=== PATIENT | male | born 1985 | race Caucasian/White ===

== ENCOUNTER 2017-07-16 18:45 | Emergency (ER) | payer BC ==
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
[2017-07-16] MEDS ORDERED: Cyclobenzaprine 10 MG PO ONE (20:49)
[2017-07-16 20:56] VITALS: BP 168/100; PULSE 77; O2SAT 97
[2017-07-16] MEDS ORDERED: Cyclobenzaprine 10 MG ONE (20:58)
[2017-07-16] MEDS ORDERED: TORAdol 30 mg Injection IM ONE (21:03)
[2017-07-16] MEDS ORDERED: TORAdol 30 mg Injection ONE (21:05)
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
== END 2017-07-16 21:38 | disposition home or self-care (01) ==
LOC: ED 18:45
DX: S13.4XXA Sprain of ligaments of cervical spine, initial encounter (principal); S29.012A Strain of muscle and tendon of back wall of thorax, initial encounter; V89.2XXA Person injured in unspecified motor-vehicle accident, traffic, initial encounter; M54.2 Cervicalgia; M54.6 Pain in thoracic spine
CPT/HCPCS: 71010; 72125; 72128; 96372; 99284; J1885; A9270-GY

== ENCOUNTER 2018-02-25 12:14 | Emergency (ER) | payer SELFPAY ==
[2018-02-25] MEDS ORDERED: BACIGUENT PACKET TP ONE (12:40)
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
[2018-02-25] MEDS ORDERED: XYLOCAINE 1% HCL 20 ML MDV IJ ONE (12:59)
[2018-02-25] MEDS ORDERED: XYLOCAINE 1% HCL 20 ML MDV ONE (13:01)
[2018-02-25] MEDS ORDERED: BACIGUENT PACKET ONE (13:01)
[2018-02-25 13:41] VITALS: BP 140/75; PULSE 60; O2SAT 98
== END 2018-02-25 13:43 | disposition home or self-care (01) ==
LOC: ED 12:14
PROC: 0HQGXZZ Repair Left Hand Skin, External Approach (ICD-10-PCS; principal; 2018-02-25)
DX: S61.412A Laceration without foreign body of left hand, initial encounter (principal); W26.0XXA Contact with knife, initial encounter
CPT/HCPCS: 12001; 96372; 99284; A9270-GY

== ENCOUNTER 2018-04-12 06:05 | Emergency (ER) | payer SELFPAY ==
[2018-04-12 06:10] VITALS: O2SAT 99
[2018-04-12] MEDS ORDERED: Erythromycin 1 GM ONE (06:27)
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
[2018-04-12] MEDS ORDERED: Erythromycin 3.5 GM OPHTH. OP ONE (06:39)
[2018-04-12] MEDS ORDERED: ZOFRAN ODT 4 MG ONE (06:51)
[2018-04-12] MEDS ORDERED: ZOFRAN ODT 4 MG PO ONE (06:52)
[2018-04-12 07:08] VITALS: BP 132/77; PULSE 70
== END 2018-04-12 07:25 | disposition home or self-care (01) ==
LOC: ED 06:05
DX: S05.02XA Injury of conjunctiva and corneal abrasion without foreign body, left eye, initial encounter (principal); S91.111A Laceration without foreign body of right great toe without damage to nail, initial encounter; W45.8XXA Other foreign body or object entering through skin, initial encounter; Y93.02 Activity, running; Y92.096 Garden or yard of other non-institutional residence as the place of occurrence of the external cause; Z72.89 Other problems related to lifestyle; F15.90 Other stimulant use, unspecified, uncomplicated
CPT/HCPCS: 99283; Q0162; A9270-GY

== ENCOUNTER 2020-12-10 14:33 | Emergency (ER) | payer MEDICAID ==
[2020-12-10] MEDS ORDERED: Zofran 4 MG/2 ML VIAL IV ONE (14:49)
[2020-12-10] MEDS ORDERED: Sodium Chloride 0.9% 1000 ML 1,000 ML IV STA (14:49)
--- NOTE | 2020-12-10 14:49 | ERPHSYRPT ---
- History of Present Illness Time Seen by Provider: 12/10/20 14:40 Source: patient, EMS Patient Subjective Stated Complaint: Pt has been going to the Methadone clinic for 3 years and got placed in [facility] on Thursday and is now having body cramps, nausea, and tremors Triage Nursing Assessment: Pt brought to the ER via EMS from the local [facility], pt states that he has been having "convulsions" for the past 18 hours, denies pain but states his whole body has been cramping, abdomen tender with palpatation to all quadrants, pulses normal, skin n/w/d, doesn't appear to be in any distress Physician History: This is a 34-year-old white male resident of local [facility] who has been receiving methadone in a methadone clinic. His last dose was Thursday prior to this evaluation. He is receiving Librium, Ativan and loperamide to treat his symptoms in the [facility]. He is have any worsening symptoms of nausea vomiting body cramps that are generalized. He feels as though he is withdrawing. Patient was brought into the emergency department by EMS. Severity: mild Associated Symptoms: nausea, vomiting, abdominal pain, other (Body aches and spasming.), No shortness of breath, No chest pain Allergies/Adverse Reactions: No Known Drug Allergies Allergy (Verified 12/10/20 14:44) Home Medications: Methadone HCl 60 mg PO DAILY 12/10/20 [History] Hx Tetanus, Diphtheria Vaccination/Date Given: Yes (2016) Hx Influenza Vaccination/Date Given: No Hx Pneumococcal Vaccination/Date Given: No Travel Risk - International Travel Have you traveled outside of the country in past 3 weeks: No - Coronavirus Screening Are you exhibiting any of the following symptoms?: No Close contact with a COVID-19 positive Pt in past 14-21 Days: No - Vaccine Status Have you recieved a Covid-19 vaccination: No - Review of Systems Constitutional: No Symptoms Eyes: No Symptoms Ears, Nose, & Throat: No Symptoms Respiratory: No Symptoms Cardiac: No Symptoms Abdominal/Gastrointestinal: Abdominal Pain (Damping), Nausea, Vomiting, Diarrhea Genitourinary Symptoms: No Symptoms Musculoskeletal: Myalgias Skin: No Symptoms Neurological: No Symptoms Psychological: No Symptoms Endocrine: No Symptoms Hematologic/Lymphatic: No Symptoms Immunological/Allergic: No Symptoms All Other Systems: Reviewed and Negative - Past Medical History Pertinent Past Medical History: No Neurological History: No Pertinent History ENT History: No Pertinent History Cardiac History: No Pertinent History Respiratory History: No Pertinent History Endocrine Medical History: No Pertinent History Musculoskeletal History: No Pertinent History GI Medical History: No Pertinent History History: No Pertinent History Psycho-Social History: No Pertinent History Male Reproductive Disorders: No Pertinent History Other Medical History: hx illicit opioid abuse - Past Surgical History Past Surgical History: Yes Neuro Surgical History: No Pertinent History Cardiac: No Pertinent History Respiratory: No Pertinent History Gastrointestinal: No Pertinent History Genitourinary: No Pertinent History Musculoskeletal: Orthopedic Surgery Male Surgical History: No Pertinent History Other Surgical History: FX: pelvis, hip and right arm - Social History Smoking Status: Current every day smoker How long have you smoked: 8 years Exposure to second hand smoke: Yes Drug Use: narcotics Patient Lives Alone: No - Nursing Vital Signs Nursing Vital Signs: Initial Vital Signs Temperature 98.4 F 12/10/20 14:35 Pulse Rate 83 12/10/20 14:35 Respiratory Rate 19 12/10/20 14:35 Blood Pressure 158/96 12/10/20 14:35 O2 Sat by Pulse Oximetry 100 12/10/20 14:35 Pain Scale Pain Intensity 2 - Physical Exam General Appearance: mild distress, alert, anxiety Eye Exam: PERRL/EOMI, eyes nml inspection Ears, Nose, Throat Exam: normal ENT inspection, moist mucous membranes Neck Exam: normal inspection, non-tender, supple, full range of motion Respiratory Exam: normal breath sounds, lungs clear, airway intact, No chest tenderness, No respiratory distress Cardiovascular Exam: regular rate/rhythm, normal heart sounds, normal peripheral pulses Gastrointestinal/Abdomen Exam: soft, normal bowel sounds, No tenderness, No guarding Rectal Exam: not done Back Exam: normal inspection, normal range of motion, No CVA tenderness, No vertebral tenderness Extremity Exam: normal inspection, normal range of motion, pelvis stable Neurologic Exam: alert, oriented x 3, cooperative, physician extender II-XII nml as tested, normal mood/affect, nml cerebellar function, nml station & gait, sensation nml Skin Exam: normal color, warm, dry Lymphatic Exam: No adenopathy SpO2 Interpretation: normal SpO2: 100 O2 Delivery: Room Air - Course Nursing assessment & vital signs reviewed: Yes Ordered Tests: Active Orders 24 hr Category Date Time Status Clean Catch Urine Specimen STAT Care 12/10/20 14:49 Active IV Insertion STAT Care 12/10/20 14:49 Active AMYLASE Stat Lab 12/10/20 15:05 Completed CBC W DIFF Stat Lab 12/10/20 15:05 Completed CMP Stat Lab 12/10/20 15:05 Completed LIPASE Stat Lab 12/10/20 15:05 Completed UA W/RFX UR CULTURE Stat Lab 12/10/20 16:28 Completed Urine Triage Profile Stat Lab 12/10/20 16:28 Completed Medication Summary Discontinued Medications Generic Name Dose Route Start Last Admin Trade Name Elpidio PRN Reason Stop Dose Admin Sodium Chloride 1,000 mls @ 999 mls/hr 12/10/20 14:49 12/10/20 16:18 Sodium Chloride 0.9% 1000 Ml IV 12/10/20 15:49 Infused .Q1H1M STA Infusion Sodium Chloride Confirm 12/10/20 15:06 Sodium Chloride 0.9% 1000 Ml Administered 12/10/20 15:07 Dose 1,000 mls @ ud .ROUTE .STK-MED ONE Lorazepam 1 mg 12/10/20 14:50 12/10/20 15:09 Ativan 2 Mg/1 Ml Vial IV 12/10/20 14:51 1 mg STAT ONE Administration Lorazepam Confirm 12/10/20 15:06 Ativan 2 Mg/1 Ml Vial Administered 12/10/20 15:07 Dose 2 mg .ROUTE .STK-MED ONE Methadone HCl 20 mg 12/10/20 14:50 12/10/20 15:09 Dolophine 10mg Tablet PO 12/10/20 14:51 20 mg STAT ONE Administration Ondansetron HCl 4 mg 12/10/20 14:49 12/10/20 15:09 Zofran 4 Mg/2 Ml Vial IV 12/10/20 14:50 4 mg STAT ONE Administration Ondansetron HCl Confirm 12/10/20 15:05 Zofran 4 Mg/2 Ml Vial Administered 12/10/20 15:06 Dose 4 mg .ROUTE .STK-MED ONE Lab/Rad Data: Laboratory Result Diagrams 12/10/20 15:05 12/10/20 15:05 Laboratory Results 12/10/20 12/10/20 12/10/20 Range/Units 16:28 16:28 15:05 WBC (4.0-10.5) K/mm3 RBC (4.1-5.6) M/mm3 Hgb (12.5-18.0) gm/dl Hct (42-50) % MCV (78-100) fl MCH (26-32) pg MCHC (32-36) g/dl RDW (11.5-14.0) % Plt Count (150-450) K/mm3 MPV (7.5-11.0) fl Gran % (36.0-66.0) % Eos # (Auto) (0-0.5) Absolute Lymphs (auto) (1.0-4.6) Absolute Monos (auto) (0.0-1.3) Lymphocytes % (24.0-44.0) % Monocytes % (0.0-12.0) % Eosinophils % (0.00-5.0) % Basophils % (0.0-0.4) % Absolute Granulocytes (1.4-6.9) Basophils # (0-0.4) Sodium 141 (137-145) mmol/L Potassium 4.5 (3.5-5.1) mmol/L Chloride 103 (98-107) mmol/L Carbon Dioxide 29 (22-30) mmol/L Anion Gap 13.5 (5-15) MEQ/L BUN 13 (9-20) mg/dL Creatinine 0.91 (0.66-1.25) mg/dL Estimated GFR > 60.0 ML/MIN Glucose 109 H (74-106) mg/dL Calcium 9.6 (8.4-10.2) mg/dL Total Bilirubin 0.50 (0.2-1.3) mg/dL AST 54 (17-59) U/L ALT 86 H (0-50) U/L Alkaline Phosphatase 51 (38-126) U/L Serum Total Protein 8.4 H (6.3-8.2) g/dL Albumin 4.8 (3.5-5.0) g/dL Amylase 47 (30-110) U/L Lipase 29 (23-300) U/L Urine Color YELLOW (YELLOW) Urine Appearance CLEAR (CLEAR) Urine pH 8.0 (5-6) Ur Specific [place] 1.020 (1.005-1.025) Urine Protein 100 (Negative) Urine Ketones NEGATIVE (NEGATIVE) Urine Blood SMALL (0-5) Abhishek/ul Urine Nitrite NEGATIVE (NEGATIVE) Urine Bilirubin NEGATIVE (NEGATIVE) Urine Urobilinogen 4 (0-1) mg/dL Ur Leukocyte Esterase TRACE (NEGATIVE) Urine WBC (Auto) 0-2 (0-5) /HPF Urine RBC (Auto) NONE (0-2) /HPF U Epithel Cells (Auto) RARE (FEW) /HPF Urine Bacteria (Auto) NONE (NEGATIVE) /HPF Urine Culture Reflexed NO (NO) Urine Glucose NEGATIVE (NEGATIVE) mg/dL Urine Opiates Level NEGATIVE (NEGATIVE) Ur Methadone POSITIVE (NEGATIVE) Urine Barbiturates NEGATIVE (NEGATIVE) Ur Phencyclidine (PCP) NEGATIVE (NEGATIVE) Urine Amphetamine POSITIVE (NEGATIVE) U Benzodiazepine Level POSITIVE (NEGATIVE) Urine Cocaine NEGATIVE (NEGATIVE) Urine Marijuana (THC) NEGATIVE (NEGATIVE) 12/10/20 Range/Units 15:05 WBC 6.2 (4.0-10.5) K/mm3 RBC 5.48 (4.1-5.6) M/mm3 Hgb 16.3 (12.5-18.0) gm/dl Hct 49.7 (42-50) % MCV 90.7 (78-100) fl MCH 29.7 (26-32) pg MCHC 32.8 (32-36) g/dl RDW 13.5 (11.5-14.0) % Plt Count 263 (150-450) K/mm3 MPV 11.2 H (7.5-11.0) fl Gran % 63.0 (36.0-66.0) % Eos # (Auto) 0.12 (0-0.5) Absolute Lymphs (auto) 1.68 (1.0-4.6) Absolute Monos (auto) 0.48 (0.0-1.3) Lymphocytes % 26.9 (24.0-44.0) % Monocytes % 7.7 (0.0-12.0) % Eosinophils % 1.9 (0.00-5.0) % Basophils % 0.5 (0.0-0.4) % Absolute Granulocytes 3.93 (1.4-6.9) Basophils # 0.03 (0-0.4) Sodium (137-145) mmol/L Potassium (3.5-5.1) mmol/L Chloride (98-107) mmol/L Carbon Dioxide (22-30) mmol/L Anion Gap (5-15) MEQ/L BUN (9-20) mg/dL Creatinine (0.66-1.25) mg/dL Estimated GFR ML/MIN Glucose (74-106) mg/dL Calcium (8.4-10.2) mg/dL Total Bilirubin (0.2-1.3) mg/dL AST (17-59) U/L ALT (0-50) U/L Alkaline Phosphatase (38-126) U/L Serum Total Protein (6.3-8.2) g/dL Albumin (3.5-5.0) g/dL Amylase (30-110) U/L Lipase (23-300) U/L Urine Color (YELLOW) Urine Appearance (CLEAR) Urine pH (5-6) Ur Specific [place] (1.005-1.025) Urine Protein (Negative) Urine Ketones (NEGATIVE) Urine Blood (0-5) Abhishek/ul Urine Nitrite (NEGATIVE) Urine Bilirubin (NEGATIVE) Urine Urobilinogen (0-1) mg/dL Ur Leukocyte Esterase (NEGATIVE) Urine WBC (Auto) (0-5) /HPF Urine RBC (Auto) (0-2) /HPF U Epithel Cells (Auto) (FEW) /HPF Urine Bacteria (Auto) (NEGATIVE) /HPF Urine Culture Reflexed (NO) Urine Glucose (NEGATIVE) mg/dL Urine Opiates Level (NEGATIVE) Ur Methadone (NEGATIVE) Urine Barbiturates (NEGATIVE) Ur Phencyclidine (PCP) (NEGATIVE) Urine Amphetamine (NEGATIVE) U Benzodiazepine Level (NEGATIVE) Urine Cocaine (NEGATIVE) Urine Marijuana (THC) (NEGATIVE) - Progress Progress: improved, re-examined Progress Note: 12/10/20 17:12 Patient states he is feeling much better. I did contact a provider of methadone clinic (not a physician) who has been treating this patient with a combination of loperamide for diarrhea, lorazepam for anxiety and Librium. This treatment in the [facility] has not been completely effective. The patient may be having methadone withdrawal since his methadone was abruptly stopped when he was admitted into the [facility]. My plan is to provide the patient with intravenous fluids, check electrolytes and kidney function as well as urinalysis.. We will also obtain a urine triage. We will provide the patient with a single dose of methadone. Patient will then be transferred back to [facility] to continue the treatment plan of loperamide, lorazepam and Librium. Counseled pt/family regarding: lab results, diagnosis, need for follow-up - Departure Departure Disposition: [facility] Clinical Impression: Drug withdrawal Condition: Stable Critical Care Time: No Referrals: [facility] [Primary Care Provider] - Additional Instructions: Follow the treatment plan at the [facility].
[2020-12-10] MEDS ORDERED: DOLOPHINE 10MG Tablet PO ONE (14:50)
[2020-12-10] MEDS ORDERED: Ativan 2 MG/1 ML VIAL IV ONE (14:50)
[2020-12-10] MEDS ORDERED: Zofran 4 MG/2 ML VIAL ONE (15:05)
[2020-12-10] MEDS ORDERED: Ativan 2 MG/1 ML VIAL ONE (15:06)
[2020-12-10] MEDS ORDERED: Sodium Chloride 0.9% 1000 ML 1,000 ML ONE (15:06)
[2020-12-10 15:18] LABS: Absolute Neutrophil Ct (ANC) 3.93 (1.4-6.9); BASOPHIL % 0.5 % (0.0-0.4); Basophil (Absolute #) 0.03 (0-0.4); Eosinophil % 1.9 % (0.00-5.0); Eosinophil (Absolute #) 0.12 (0-0.5); Hematocrit 49.7 % (42-50); Hemoglobin 16.3 gm/dl (12.5-18.0); Lymphocyte (Absolute #) 1.68 (1.0-4.6); Lymphocytes % 26.9 % (24.0-44.0); Mean Cell Volume 90.7 fl (78-100); Mean Corpuscular Hemoglobin 29.7 pg (26-32); Mean Corpuscular Hgb Concent. 32.8 g/dl (32-36); Mean Platelet Volume 11.2 fl (7.5-11.0); Monocyte (Absolute #) 0.48 (0.0-1.3); Monocytes % 7.7 % (0.0-12.0); Platelet Count 263 K/mm3 (150-450); Red Blood Count 5.48 M/mm3 (4.1-5.6); Red Cell Distribution Width 13.5 % (11.5-14.0); White Blood Count 6.2 K/mm3 (4.0-10.5)
[2020-12-10 15:46] LABS: ALBUMIN 4.8 g/dL (3.5-5.0); ALKALINE PHOSPHATASE 51 U/L (38-126); AMYLASE 47 U/L (30-110); ANION GAP 13.5 MEQ/L (5-15); BLOOD UREA NITROGEN 13 mg/dL (9-20); CHLORIDE 103 mmol/L (98-107); Calcium 9.6 mg/dL (8.4-10.2); Carbon Dioxide 29 mmol/L (22-30); Creatinine 1 0.91 mg/dL (0.66-1.25); EST GLOMERULAR FILTRATION RATE > 60.0 ML/MIN; Glucose 109 mg/dL (74-106); LIPASE 29 U/L (23-300); Potassium 4.5 mmol/L (3.5-5.1); SGOT/AST 54 U/L (17-59); SGPT/ALT 86 U/L (0-50); SODIUM 141 mmol/L (137-145); Total Protein 8.4 g/dL (6.3-8.2)
[2020-12-10 17:01] LABS: Barbiturate,Urine NEGATIVE (NEGATIVE); Benzodiazepine,Urine POSITIVE (NEGATIVE); Cocaine,Urine NEGATIVE (NEGATIVE); Methadone,Urine POSITIVE (NEGATIVE); Opiate,Urine NEGATIVE (NEGATIVE); PCP,Urine NEGATIVE (NEGATIVE); THC,Urine NEGATIVE (NEGATIVE)
[2020-12-10 17:31] LABS: Amphetamine,Urine POSITIVE (NEGATIVE)
[2020-12-10 17:50] LABS: Appearance CLEAR (CLEAR); Bilirubin NEGATIVE (NEGATIVE); Blood SMALL Ery/ul (0-5); Epithelial Cells RARE /HPF (FEW); Glucose NEGATIVE (NEGATIVE); Ketones NEGATIVE (NEGATIVE); Leukocyte Esterase TRACE (NEGATIVE); Nitrite NEGATIVE (NEGATIVE); Protein,Urine Dip 100 (Negative); Urobilinogen 4 mg/dL (0-1); WBC 0-2 /HPF (0-5)
[2020-12-10 18:13] VITALS: BP 171/81; PULSE 76; O2SAT 97
== END 2020-12-10 18:04 | disposition home or self-care (01) ==
LOC: ED 14:33
DX: F19.239 Other psychoactive substance dependence with withdrawal, unspecified (principal)
CPT/HCPCS: 36000; 36415; 80053; 80307; 81001; 82150; 83690; 85025; 96360; 96374; 96375; 99284; J2060; J2405; A9270-GY

== ENCOUNTER 2023-12-22 18:51 | Emergency (ER) | payer MEDICAID, OTHER ==
[2023-12-22 19:04] VITALS: BP 139/83; PULSE 101; TEMP 98.3; O2SAT 97
[2023-12-22] MEDS ORDERED: BACIGUENT PACKET ONE (19:18)
[2023-12-22] MEDS ORDERED: XYLOCAINE 1% HCL 20 ML MDV ONE ×2 (19:18→19:26)
[2023-12-22] MEDS: XYLOCAINE 1% HCL 20 ML MDV IJ ONE (19:24)
--- NOTE | 2023-12-22 19:24 | ERPHSYRPT ---
- History of Present Illness Time Seen by Provider: 12/22/23 19:10 Source: patient Exam Limitations: no limitations Patient Subjective Stated Complaint: pt cut his left dorsal lateral wrist with a needle grinder Triage Nursing Assessment: Pt brought to the ER by his girlfriend, tachycardic, rates pain as 5/10 but declines all pain meds, two lacerations next to each other on the dorsal lateral wrist measuring 3x1 and 3x.2, bleeding controlled, pulses normal, cap refill normal Physician History: 37-year-old male presents to our ED for evaluation and treatment of laceration to the left lateral wrist just superficial to the radial artery. Patient was using a saw when he injured himself. Injury occurred is prior to arrival. Tetanus up-to-date. Last tetanus was 4 years ago. Pain localized to the area of involvement. Patient declined pain medication. Patient advised that he has a history of hepatitis C. Symptoms are mild to moderate in intensity. No specific worsening improving factors. Patient voices no other complaints or concerns at this time. Portions of this note were created with voice recognition technology. There may be grammatical, spelling, punctuation or sound alike errors Timing/Duration: today Severity: moderate Modifying Factors: Improves With: nothing Associated Symptoms: denies symptoms Allergies/Adverse Reactions: No Known Drug Allergies Allergy (Verified 12/22/23 19:04) Home Medications: Buprenorphine HCl/Naloxone HCl [Buprenorphine-Nalox 8-2 mg Tab] 1 tab SL BID 12/22/23 [History] Hx Tetanus, Diphtheria Vaccination/Date Given: Yes (2016) Hx Influenza Vaccination/Date Given: No Hx Pneumococcal Vaccination/Date Given: No Travel Risk - International Travel Have you traveled outside of the country in past 3 weeks: No - Emerging Infectious Disease Are you exhibiting symptoms associated with any current EIDs: No - Review of Systems Constitutional: No Symptoms, No Fever, No Chills Eyes: No Symptoms Ears, Nose, & Throat: No Symptoms Respiratory: No Symptoms, No Cough, No Dyspnea Cardiac: No Symptoms, No Chest Pain, No Edema, No Syncope Abdominal/Gastrointestinal: No Symptoms, No Abdominal Pain, No Nausea, No Vomiting, No Diarrhea Genitourinary Symptoms: No Symptoms, No Dysuria Musculoskeletal: No Symptoms, No Back Pain, No Neck Pain Skin: No Symptoms, No Rash Neurological: No Symptoms, No Dizziness, No Focal Weakness, No Sensory Changes Psychological: No Symptoms Endocrine: No Symptoms Hematologic/Lymphatic: No Symptoms Immunological/Allergic: No Symptoms All Other Systems: Reviewed and Negative - Past Medical History Pertinent Past Medical History: Yes Neurological History: No Pertinent History ENT History: No Pertinent History Cardiac History: No Pertinent History Respiratory History: No Pertinent History Endocrine Medical History: No Pertinent History Musculoskeletal History: No Pertinent History GI Medical History: No Pertinent History History: No Pertinent History Psycho-Social History: No Pertinent History Male Reproductive Disorders: No Pertinent History Other Medical History: hx illicit opioid abuse - Past Surgical History Past Surgical History: Yes Neuro Surgical History: No Pertinent History Cardiac: No Pertinent History Respiratory: No Pertinent History Gastrointestinal: No Pertinent History Genitourinary: No Pertinent History Musculoskeletal: Orthopedic Surgery Male Surgical History: No Pertinent History Other Surgical History: FX: pelvis, hip and right arm - Social History Smoking Status: Current every day smoker How long have you smoked: 8 years Exposure to second hand smoke: Yes Drug Use: narcotics Patient Lives Alone: No - Nursing Vital Signs Nursing Vital Signs: Initial Vital Signs Temperature 98.3 F 12/22/23 18:55 Pulse Rate 101 H 12/22/23 18:55 Blood Pressure 139/83 12/22/23 18:55 O2 Sat by Pulse Oximetry 97 12/22/23 18:55 Pain Scale Pain Intensity 5 - Physical Exam General Appearance: no apparent distress, alert Eye Exam: PERRL/EOMI, eyes nml inspection Ears, Nose, Throat Exam: normal ENT inspection, TMs normal, pharynx normal, moist mucous membranes Neck Exam: normal inspection, non-tender, supple, full range of motion Respiratory Exam: normal breath sounds, lungs clear, airway intact, No respiratory distress Cardiovascular Exam: regular rate/rhythm, normal heart sounds, normal peripheral pulses Gastrointestinal/Abdomen Exam: soft, normal bowel sounds, No tenderness, No mass Back Exam: normal inspection, normal range of motion, No CVA tenderness, No vertebral tenderness Extremity Exam: normal inspection, normal range of motion, pelvis stable, tenderness (2 3 cm lacerations in parallel. Lacerations are approximately 4 mm intact.), other (Involved left upper extremity neurovascular tact distally compartments are soft cap refill less than 2 seconds.) Neurologic Exam: alert, oriented x 3, cooperative, normal mood/affect, nml cerebellar function, nml station & gait, sensation nml, No motor deficits Skin Exam: normal color, warm, dry, No rash Lymphatic Exam: No adenopathy SpO2 Interpretation: normal SpO2: 97 O2 Delivery: Room Air - Course Nursing assessment & vital signs reviewed: Yes Ordered Tests: Active Orders 24 hr Category Date Time Status Wound Care STAT Care 12/22/23 19:17 Active Medication Summary Generic Name Dose Route Start Last Admin Trade Name Freq PRN Reason Stop Dose Admin Bacitracin Zinc 0.9 each 12/22/23 19:17 Bacitracin Packet 1 Each Pckt TP 12/22/23 19:18 STAT ONE Lidocaine HCl 5 ml 12/22/23 19:17 Lidocaine Hcl 1% 20 Ml Mdv 20 Ml Ml IJ 12/22/23 19:18 STAT ONE - Progress Progress: improved Progress Note: 37-year-old male presents to our ED for evaluation and treatment of laceration to the lateral aspect of the left wrist just superficial to the radial nerve. No pulsatile or active bleeding. The involved extremity/left hand is neurovascular tact distally compartments are soft cap refill less than 2 seconds. There appears to be no tendinous injuries. Laceration was repaired using a total of 9 simple interrupted sutures. There were two 3 cm lacerations. 1 received 5 simple interrupted sutures. The second received 4 simple interrupted sutures. Patient tolerated procedure well. Patient neurovascular tact distally postprocedure. Sutures are to remain in place for approximately 7 days. Because of the contaminated instrument of injury patient was copiously irrigated using Hibiclens. Patient received an IM dose of Rocephin. A prescription for Keflex forwarded to patient's pharmacy. Patient agrees to follow-up with his primary care doctor within 48 hours for evaluation for reassessment. No foreign body observed during physical exam. Patient hide foreign body sensation. Portions of this note were created with voice recognition technology. There may be grammatical, spelling, punctuation or sound alike errors Complexity problem addressed is moderate acute complicated No critical care time Complex of data reviewed and analyzed is none. Diagnosis made based on history and physical exam. No specialized testing ordered. Risk complication and or risk of morbidity/mortality of patient management is moderate. A prescription for Keflex forwarded to patient's pharmacy. Vital stable. Patient neurovascular tact distally postprocedure. Plan of care established for shared decision making. No social determinants of health present impede follow-up. Portions of this note were created with voice recognition technology. There may be grammatical, spelling, punctuation or sound alike errors 12/22/23 19:25 Counseled pt/family regarding: diagnosis, need for follow-up - Departure Departure Disposition: Home Clinical Impression: Laceration Condition: Stable Critical Care Time: No Additional Instructions: Discharge/Care Plan EDWARD BAEZ was seen on 12/22/23 in the Emergency Room. The patient was counseled regarding Diagnosis,Lab results, Imaging studies, need for follow up and when to return to the Emergency Room. Prescriptions given: Discharge Note I have spoken with the patient and/or caregivers. I have explained the patient's condition, diagnosis and treatment plan based on the information available to me at this time. I have answered the patient's and/or caregiver's questions and addressed any concerns. The patient and/or caregivers have as good understanding of the patient's diagnosis, condition and treatment plan as can be expected at this point. The vital signs have been stable. The patient's condition is stable and appropriate for discharge from the emergency department. The patient will pursue further outpatient evaluation with the primary care physician or other designated or consulting physician as outlined in the discharge instructions. The patient and/or caregivers are agreeable to this plan of care and follow-up instructions have been explained in detail. The patient and/or caregivers have received these instruction. The patient/and or caregivers are aware that any significant change in condition or worsening of symptoms should prompt an immediate return to this or the closest emergency department or call 911. Prescriptions: Cephalexin Mh 500 mg [Keflex 500 mg] 500 mg PO TID #21 cap
[2023-12-22] MEDS: BACIGUENT PACKET TP ONE (19:25)
[2023-12-22] MEDS ORDERED: Rocephin 1000 MG INJ ONE (19:26)
[2023-12-22] MEDS: Rocephin 1000 MG INJ IM ONE (19:27)
== END 2023-12-22 19:34 | disposition home or self-care (01) ==
LOC: ED 18:51
DX: S61.512A Laceration without foreign body of left wrist, initial encounter (principal); W27.0XXA Contact with workbench tool, initial encounter; Z79.891 Long term (current) use of opiate analgesic; Z72.0 Tobacco use
CPT/HCPCS: 12002; 96372; 99283; J0696; A9270-GY

== ENCOUNTER 2024-07-17 20:41 | Emergency (ER) | payer SELFPAY ==
[2024-07-17] MEDS ORDERED: Fluor-I-Strip/Ful-Flo OP ONE (20:53)
[2024-07-17] MEDS ORDERED: Eye-Stream Solution ONE (20:53)
[2024-07-17] MEDS ORDERED: TETRACAINE 0.5% STERI-UNIT SOL OP ONE (20:53)
[2024-07-17] MEDS: TETRACAINE 0.5% STERI-UNIT SOL OP STA (21:00)
[2024-07-17] MEDS: Fluor-I-Strip/Ful-Flo OP ONE (21:00)
[2024-07-17 21:10] VITALS: TEMP 97.8
[2024-07-17] MEDS: Eye-Stream Solution OP ONE (21:12)
[2024-07-17] MEDS ORDERED: PERCOCET TABLET 5/325MG ONE (21:32)
[2024-07-17] MEDS: PERCOCET TABLET 5/325MG PO ONE (21:33)
[2024-07-17] MEDS: PERCOCET TABLET 5/325MG PO STA (21:34)
[2024-07-17] MEDS: Ocuflox OPHTHALMIC 5 ML OP ONE (21:40)
[2024-07-17 22:02] VITALS: BP 144/81; PULSE 82; RESP 20; O2SAT 96
--- NOTE | 2024-07-17 22:09 | ERPHSYRPT ---
- History of Present Illness Time Seen by Provider: 07/17/24 20:58 Source: patient Exam Limitations: no limitations Patient Subjective Stated Complaint: Eye injury- Right eye Triage Nursing Assessment: Patient ambulated back to ED and transferred self to bed. Patient A+O X 3. Patient's skin pink, warm and dry. Patient complains of right eye injury. 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 Patient states then his eye felt like it was swelling and he could not see out of it. Patient unable to debrie got into right eye. Right eye noted to be swollen with thick mu cosal draingage. Patient complains of pain 10/10 to right eye. 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 Patient later noticed swelling around the eye and eyeball with worsening of vision. Patient reports moderate to severe sharp shooting pain with movements of eyeball. Has minimal swelling of upper lid. Has conjunctival swelling. Pupil reacting. No obvious foreign body in the upper and lower lid eversion. Has tetracaine drops followed by fluorescein dye and has diffuse uptake in the center involving the pupil area. No obvious foreign body noticed with ophthalmoscopic exam. No hyphema or hypopyon. No globe rupture. Started on ofloxacin eyedrops and given oxycodone for symptomatic relief. Recommended outpatient follow-up with ophthalmology/optometry in the morning. Right eye is patched. Allergies/Adverse Reactions: No Known Drug Allergies Allergy (Verified 07/17/24 20:59) Home Medications: No Reportable Medications [No Reported Medications] 07/17/24 [History] Hx Tetanus, Diphtheria Vaccination/Date Given: Yes (2016) Hx Influenza Vaccination/Date Given: Yes Hx Pneumococcal Vaccination/Date Given: No Immunizations Up to Date: Yes Travel Risk - International Travel Have you traveled outside of the country in past 3 weeks: No - Emerging Infectious Disease Are you exhibiting symptoms associated with any current EIDs: No - Review of Systems Constitutional: No Symptoms Eyes: Eye Pain, Eye Redness, Itchy, Photophobia, Tearing, Vision Changes, Foreign Body Sensation Ears, Nose, & Throat: No Symptoms Respiratory: No Symptoms Cardiac: No Symptoms Neurological: No Symptoms Endocrine: No Symptoms - Past Medical History Pertinent Past Medical History: Yes Neurological History: No Pertinent History ENT History: No Pertinent History Cardiac History: No Pertinent History Respiratory History: No Pertinent History Endocrine Medical History: No Pertinent History Musculoskeletal History: No Pertinent History GI Medical History: No Pertinent History History: No Pertinent History Psycho-Social History: No Pertinent History Male Reproductive Disorders: No Pertinent History Other Medical History: hx illicit opioid abuse - Past Surgical History Past Surgical History: Yes Neuro Surgical History: No Pertinent History Cardiac: No Pertinent History Respiratory: No Pertinent History Gastrointestinal: No Pertinent History Genitourinary: No Pertinent History Musculoskeletal: Orthopedic Surgery Male Surgical History: No Pertinent History Other Surgical History: FX: pelvis, hip and right arm - Social History Smoking Status: Current every day smoker How long have you smoked: 8 years Exposure to second hand smoke: Yes Drug Use: marijuana Patient Lives Alone: No - Social Determinants of Health Will the patient participate in the screening: Yes Do you worry about a steady place to live?: No Do you have any problems with any of the following?: No known problems In the past 12 months,have you had to go without utilities?: No Transportation Issues: No Has anyone in your support network made you feel unsafe?: No Have you or anyone in your house had to go without enough: No - Nursing Vital Signs Nursing Vital Signs: Initial Vital Signs Temperature 97.8 F 07/17/24 21:00 Pulse Rate 92 H 07/17/24 21:00 Respiratory Rate 18 07/17/24 21:00 Blood Pressure 155/87 07/17/24 21:00 O2 Sat by Pulse Oximetry 100 07/17/24 21:00 Pain Scale Pain Intensity 7 - Physical Exam General Appearance: no apparent distress Vision Acuity Degree Evaluation Phase: Uncorrected Vision Acuity Left Eye: 20/50 Eye Exam: right eye: conjunctival inflammation, corneal abrasion, erythema, eyelid inflammation, left eye: normal inspection, PERRL, EOMI Ears, Nose, Throat Exam: normal ENT inspection, TMs normal, pharynx normal Neck Exam: normal inspection, non-tender, supple, full range of motion Respiratory Exam: normal breath sounds, lungs clear Cardiovascular Exam: regular rate/rhythm, normal heart sounds Neurologic: alert, oriented x 3, cooperative Skin Exam: normal color SpO2 Interpretation: normal SpO2: 96 O2 Delivery: Room Air Procedures - Eye Procedure Time of Procedure: 22:00 Timeout: Performed Tetracaine Drops Administered: Yes Eye FB Removal: other Remaining Material after FB Removal: none Eye Irrigated w/ Saline (ccs): 30 Antibiotic Oinment/Drps Admin: right eye Progress: Tolerated procedure very well Ordered Tests: Medication Summary Discontinued Medications Generic Name Dose Route Start Last Admin Trade Name Elpidio PRN Reason Stop Dose Admin Eye Irrigation Solution Confirm 07/17/24 20:53 Sodium/Potassium/Talib/Magnesium 30 Ml Eye Wash Administered 07/17/24 20:54 Dose 30 ml .ROUTE .STK-MED ONE Eye Irrigation Solution 15 ml 07/17/24 21:00 07/17/24 21:12 Sodium/Potassium/Talib/Magnesium 30 Ml Eye Wash OP 07/17/24 21:01 15 ml STAT ONE Administration Fluorescein Sodium Confirm 07/17/24 20:53 Fluorescein Sodium 1 Mg/Strip Strip Administered 07/17/24 20:54 Dose 1 mg OP .STK-MED ONE Fluorescein Sodium 1 mg 07/17/24 21:00 07/17/24 21:00 Fluorescein Sodium 1 Mg/Strip Strip OP 07/17/24 21:01 1 mg STAT ONE Administration Ofloxacin 5 ml 07/17/24 21:21 07/17/24 21:40 Ofloxacin 0.3% Opth 5 Ml Eye Drops OP 07/17/24 21:22 5 ml STAT ONE Administration Oxycodone/Acetaminophen 1 tab 07/17/24 21:26 07/17/24 21:33 Oxycodone Hcl/Apap 5 Mg/325 Mg Tablet PO 07/17/24 21:27 1 tab STAT ONE Administration Oxycodone/Acetaminophen 2 tab 07/17/24 21:26 07/17/24 21:34 Oxycodone Hcl/Apap 5 Mg/325 Mg Tablet PO 07/17/24 21:27 2 tab SENT HOME W/ PATIENT STA Administration Oxycodone/Acetaminophen Confirm 07/17/24 21:32 Oxycodone Hcl/Apap 5 Mg/325 Mg Tablet Administered 07/17/24 21:33 Dose 3 tab .ROUTE .STK-MED ONE Tetracaine HCl Confirm 07/17/24 20:53 Tetracaine Hcl/Pf 4 Ml Bottle Administered 07/17/24 20:54 Dose 4 ml OP .STK-MED ONE Tetracaine HCl 4 ml 07/17/24 21:00 07/17/24 21:00 Tetracaine Hcl/Pf 4 Ml Bottle OP 07/17/24 21:01 4 ml STAT STA Administration - Progress Progress Note: 07/17/24 22:08 38 years old male up-to-date with tetanus presented in the ER with complaint of right eye pain with itching and blurry vision sudden onset after 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 Patient later noticed swelling around the eye and eyeball with worsening of vision. Patient reports moderate to severe sharp shooting pain with movements of eyeball. Has minimal swelling of upper lid. Has conjunctival swelling. Pupil reacting. No obvious foreign body in the upper and lower lid eversion. Has tetracaine drops followed by fluorescein dye and has diffuse uptake in the center involving the pupil area. No obvious foreign body noticed with ophthalmoscopic exam. No hyphema or hypopyon. No globe rupture. Started on ofloxacin eyedrops and given oxycodone for symptomatic relief. Recommended outpatient follow-up with ophthalmology/optometry in the morning. Right eye is patched. Counseled pt/family regarding: diagnosis, need for follow-up Medical Desision Making - Risk of complications The pt has a mod risk of morbidity or mortality based on: Need for prescription drug management - Departure Departure Disposition: Home Clinical Impression: Corneal abrasion, right Condition: Stable Critical Care Time: No Referrals: DOCTOR,NO FAMILY [Primary Care Provider] - Follow up/PCP as directed Instructions: Corneal Abrasion ED Additional Instructions: Pain medications as needed. Continue with eyedrops as recommended. Follow-up with ophthalmology/optometry for reevaluation in the morning. Return to ER for worsening pain, visual changes, discharge etc.
== END 2024-07-17 22:10 | disposition home or self-care (01) ==
LOC: ED 20:41
DX: S05.01XA Injury of conjunctiva and corneal abrasion without foreign body, right eye, initial encounter (principal); W22.8XXA Striking against or struck by other objects, initial encounter; Y92.015 Private garage of single-family (private) house as the place of occurrence of the external cause; H57.11 Ocular pain, right eye; Z72.0 Tobacco use
CPT/HCPCS: 99281; 99283; A9270-GY